=== PATIENT | male | born 1985 | race American Indian/Alaskan Native ===

== ENCOUNTER 2022-04-09 23:45 | Emergency (ER) | payer SELFPAY ==
[2022-04-09 23:52] VITALS: BP 130/72
[2022-04-10] MEDS ORDERED: ACETAMINOPHEN 325 MG TAB PO ONE (07:25)
[2022-04-10 08:42] LABS: Hematocrit 42.9 % (35.5-45.6); Hemoglobin 13.8 gm/dl (11.8-15.2); Mean Corpuscular HGB Conc 32 % (32-34); Platelet Count 291 K/mm3 (140-440); Red Cell Distribution Width 14.1 % (13.2-15.2)
[2022-04-10 08:52] LABS: Mean Corpuscular Volume 69 fl (84-94)
--- NOTE | 2022-04-10 08:53 | XRay Report ---
CHEST 2 VIEWS INDICATION: sob. COMPARISON: None FINDINGS: SUPPORT DEVICES: None. HEART: Within normal limits. LUNGS/PLEURA: No acute air space or interstitial disease. No pneumothorax. ADDITIONAL FINDINGS: None. IMPRESSION: 1. No acute findings. Signer Name: Jonny Singletary MD Signed: 04/10/2022 8:49 AM Workstation Name: [id number]
[2022-04-10 09:04] LABS: Alanine Aminotransferase 33 units/L (7-56); Albumin 4.5 g/dL (3.9-5); BUN/Creatinine Ratio 10; Blood Urea Nitrogen 9 mg/dL (9-20); Calcium 9.1 mg/dL (8.4-10.2); Hemolysis Index 2
== END 2022-04-10 11:00 | disposition left against medical advice (07) ==
LOC: EDBD → ED 23:45
DX: J02.9 Acute pharyngitis, unspecified (principal); Z53.21 Procedure and treatment not carried out due to patient leaving prior to being seen by health care provider
CPT/HCPCS: 36415; 71046; 80053; 80320; 85027; G0480